=== PATIENT | male | born 1960 | race Caucasian/White ===

== ENCOUNTER 2024-10-22 09:57 | Day surgery (SDC) | payer OTHER ==
[~2024-10-22 09:57] MED LIST: BUPR-514 PO; FLUO20SO24 PO; LISI-894 PO; METO25XL PO; PANT-31 PO
[2024-10-22] MEDS: SODIUM CHLORIDE 0.9% 1,000 ML IV ONE (11:16)
[2024-10-22] MEDS ORDERED: PROPOFOL 1% 20 ML VIAL IVP ONE (12:00)
[2024-10-22] MEDS ORDERED: LIDOCAINE/PF 2% 5 ML SYRINGE IVP ONE (12:00)
[2024-10-22] MEDS ORDERED: GLYCOPYRROLATE 0.2 MG/ML VIAL IM ONE (12:00)
[2024-10-22] MEDS ORDERED: PROPOFOL 1% ISO-OSM 1000 MG/100 ML BOTTLE IV ONE (12:00)
[2024-10-22] MEDS ORDERED: RINGERS SOLUTION,LACTATED 1,000 ML IV ONE (12:04)
== END 2024-10-22 14:40 | disposition home or self-care (01) ==
LOC: SURGERY 09:57
PROVIDERS: ATTEND Internal Medicine
DX: K63.5 Polyp of colon (principal); D12.2 Benign neoplasm of ascending colon; D12.4 Benign neoplasm of descending colon; D12.3 Benign neoplasm of transverse colon; I10 Essential (primary) hypertension; D50.9 Iron deficiency anemia, unspecified; F32.A Depression, unspecified; F41.9 Anxiety disorder, unspecified; K29.70 Gastritis, unspecified, without bleeding; F17.210 Nicotine dependence, cigarettes, uncomplicated; Z86.0100 Personal history of colon polyps, unspecified; Z79.899 Other long term (current) drug therapy; Z98.890 Other specified postprocedural states
CPT/HCPCS: 45390; 45385; 88305; J2704 ×2; J3490 ×2; J7120